=== PATIENT | male | born 1975 | race African-American/Black ===

== ENCOUNTER 2025-05-13 11:44 | Emergency (ER) | payer SELFPAY ==
[~2025-05-13] VITALS: Ht 182.9 cm; Wt 75.0 kg
[2025-05-13 11:53] VITALS: O2SAT 96
[2025-05-13 13:18] LABS: BASOPHILS % 0.9 % (0.0-2.0); EOSINOPHILS % 0.3 % (0.0-5.0); HEMATOCRIT. 39.1 % (42.0-52.0); HEMOGLOBIN. 13.1 g/dL (14.0-18.0); LYMPHOCYTES % 11.9 % (20.0-50.0); MEAN PLATELET VOLUME 9.0 fl (7.4-10.4); MONOCYTES % 9.6 % (2.0-8.0); NEUTROPHILS % 77.3 % (40.0-76.0); PLATELET 241 x1000/uL (130-400); RED BLOOD CELL COUNT 4.29 mill/uL (4.7-6.1); RED CELL DISTRIBUTION WIDTH 12.6 % (11.6-14.6)
[2025-05-13 13:39] LABS: CREATININE 0.8 mg/dL (0.6-1.3); UREA NITROGEN BLOOD 10 mg/dL (9-23)
[2025-05-13 13:41] LABS: ASPARTATE AMINOTRANSFERASE 13 IU/L (<34); BILIRUBIN DIRECT 0.2 mg/dL (<=3.0); BILIRUBIN TOTAL 0.7 mg/dL (0.1-1.0); PROTEIN TOTAL 7.0 g/dL (6.0-8.3)
[2025-05-13 13:49] LABS: TROPONIN I HIGH SENSITIVITY 7 ng/L (3.0-53)
[2025-05-13] MEDS ORDERED: BENZ100C86 MT (14:18)
[2025-05-13] MEDS ORDERED: IBUP-2028 MT (14:18)
[2025-05-13 15:45] VITALS: BP 119/69; PULSE 80; RESP 18; TEMP 36.8; O2SAT 98
== END 2025-05-13 15:46 | disposition home or self-care (01) ==
LOC: ER 12:20
DX: J06.9 Acute upper respiratory infection, unspecified (principal); R07.89 Other chest pain; R04.2 Hemoptysis; Z98.890 Other specified postprocedural states
CPT/HCPCS: 80076; 80048; 85025; 84484; 36415; 71045; 93005; 99285; Z7610 ×2

== ENCOUNTER 2025-05-24 11:18 | Inpatient (IN) | payer MEDICAID ==
[2025-05-24] VITALS (36 sets, daily range): BP systolic 119–149; BP diastolic 76–101; PULSE 57–98; RESP 11–25; TEMP 36.7–36.9; O2SAT 95–100
[~2025-05-24] VITALS: Ht 182.9 cm; Wt 78.0 kg
[~2025-05-24 11:18] MED LIST: BENZ100C86 MT; IBUP-2028 MT
[2025-05-24] MEDS: ASPIRIN 325MG TABLET PO ONE (11:57)
[2025-05-24] MEDS: HEPARIN 5000 UNITS/ML VIAL IV ONE (11:57)
[2025-05-24] MEDS ORDERED: HEPARIN 1000 UNITS/ML 10ML ONE ×2 (12:00→12:14)
[2025-05-24] MEDS ORDERED: LIDOCAINE HCL 1% 20ML VIAL ONE (12:00)
[2025-05-24] MEDS ORDERED: IODIXANOL 320 MG/ML 150ML BOTTLE IV ONE (12:00)
[2025-05-24 12:12] LABS: BASOPHILS % 0.8 % (0.0-2.0); EOSINOPHILS % 0.3 % (0.0-5.0); HEMATOCRIT. 37.3 % (42.0-52.0); HEMOGLOBIN. 12.5 g/dL (14.0-18.0); LYMPHOCYTES % 14.8 % (20.0-50.0); MEAN PLATELET VOLUME 8.7 fl (7.4-10.4); MONOCYTES % 8.7 % (2.0-8.0); NEUTROPHILS % 75.4 % (40.0-76.0); PLATELET 410 x1000/uL (130-400); RED BLOOD CELL COUNT 4.09 mill/uL (4.7-6.1); RED CELL DISTRIBUTION WIDTH 13.0 % (11.6-14.6)
[2025-05-24] MEDS ORDERED: FENTANYL CITRATE/PF 50MCG/ML 2ML VIAL ONE (12:13)
[2025-05-24] MEDS ORDERED: MIDAZOLAM HCL 2 MG/2 ML VIAL ONE (12:14)
[2025-05-24 12:24] LABS: CREATININE 0.9 mg/dL (0.6-1.3); UREA NITROGEN BLOOD 7 mg/dL (9-23)
[2025-05-24 12:25] LABS: ASPARTATE AMINOTRANSFERASE 12 IU/L (<34)
[2025-05-24 12:26] LABS: BILIRUBIN DIRECT 0.1 mg/dL (<=3.0); BILIRUBIN TOTAL 0.5 mg/dL (0.1-1.0); PROTEIN TOTAL 6.8 g/dL (6.0-8.3)
[2025-05-24 12:37] LABS: TROPONIN I HIGH SENSITIVITY 199 ng/L (3.0-53)
[2025-05-24] MEDS: SODIUM CHLORIDE 0.45% 1,000 ML IV SCH (13:00)
[2025-05-24] MEDS ORDERED: CLONIDINE 0.1MG TABLET PO PRN (14:00)
[2025-05-24] MEDS ORDERED: MAGNESIUM/ALUMINUM HYDROXIDE/SIMETHICONE 30ML UDC PO PRN (14:00)
[2025-05-24] MEDS ORDERED: GUAIFENESIN 200MG/10ML SUGAR FREE UDC PO PRN (14:00)
[2025-05-24] MEDS ORDERED: ONDANSETRON HCL 4MG/2ML INJ IV PRN (14:00)
[2025-05-24] MEDS ORDERED: IPRATROPIUM/ALBUTEROL 0.5-3(2.5)MG/3ML NEB HHN PRN (14:00)
[2025-05-24] MEDS ORDERED: DEXTROSE 50% WATER 50ML SYRINGE IV PRN (16:30)
[2025-05-24 17:37] LABS: *AMPHETAMINES SCREEN URINE NEGATIVE (NEGATIVE); *BENZODIAZEPINES SCREEN URINE PRESUMPTIVE POSITIVE (NEGATIVE)
[2025-05-24 17:38] LABS: *BARBITURATES SCREEN URINE NEGATIVE (NEGATIVE); *COCAINE SCREEN URINE NEGATIVE (NEGATIVE); CANNABINOID URINE SCREEN PRESUMPTIVE POSITIVE (NEGATIVE); ECSTASY MDMA SCREEN URINE NEGATIVE (NEGATIVE); METHADONE URINE SCREEN NEGATIVE (NEGATIVE); OPIATES URINE SCREEN NEGATIVE (NEGATIVE); PHENCYCLIDINE URINE SCREEN NEGATIVE (NEGATIVE)
[2025-05-24 17:39] LABS: CLARITY URINE CLEAR (CLEAR); COLOR URINE YELLOW (YELLOW); GLUCOSE URINE NEGATIVE (NEGATIVE); KETONES URINE 1+ (NEGATIVE); LEUKOCYTE ESTERASE URINE NEGATIVE (NEGATIVE); NITRITE URINE NEGATIVE (NEGATIVE); OCCULT BLOOD URINE NEGATIVE (NEGATIVE); PH URINE 5.5 (4.5-8.0); PROTEIN URINE 1+ (NEGATIVE); SPECIFIC GRAVITY URINE 1.073 (1.005-1.030); UROBILINOGEN URINE 1.0 E.U./dL (0.2-1.0)
[2025-05-24 17:54] LABS: BACTERIA URINE TRACE; RBC URINE 0-2 /hpf (0-2); SQUAMOUS EPITHELIAL CELL URINE FEW /lpf (RARE/1+)
[2025-05-24] MEDS: PANTOPRAZOLE SODIUM 40 MG/VIAL IV SCH (17:56)
[2025-05-24] MEDS: COLCHICINE 0.6MG TABLET PO SCH (17:57)
[2025-05-24] MEDS: IBUPROFEN 600MG TABLET PO SCH (17:57)
[2025-05-24 19:30] LABS: INFLUENZA TYPE A Presumptive Negative (Pres. Neg.); INFLUENZA TYPE B Presumptive Negative (Pres. Neg.); RESPIRATORY SYNCYTIAL VIRUS Not Detected (Not Detectd)
[2025-05-24] MEDS: ACETAMINOPHEN 325MG TABLET PO PRN (19:52)
[2025-05-24 21:29] LABS: INR 1.1
[2025-05-24 22:18] LABS: TROPONIN I HIGH SENSITIVITY 13860 ng/L (3.0-53)
[2025-05-25] VITALS (12 sets, daily range): BP systolic 120–147; BP diastolic 66–92; PULSE 63–106; RESP 18–27; TEMP 36.7–38.2; O2SAT 97–100
[2025-05-25 01:57] LABS: TROPONIN I HIGH SENSITIVITY 18200 ng/L (3.0-53)
[2025-05-25] MEDS ORDERED: MIDAZOLAM HCL 2 MG/2 ML VIAL IV NR (03:30)
[2025-05-25] MEDS: SODIUM CHLORIDE 0.45% 1,000 ML IV SCH (08:18)
[2025-05-25] MEDS ORDERED: CLOPIDOGREL 75MG TABLET PO SCH (09:00)
[2025-05-25] MEDS ORDERED: ASPIRIN 81MG TABLET PO SCH (09:00)
[2025-05-25] MEDS: CLOPIDOGREL 75MG TABLET PO SCH (09:51)
[2025-05-25] MEDS: ASPIRIN 81MG TABLET PO SCH (09:51)
[2025-05-25] MEDS: METOPROLOL TARTRATE 25MG TABLET PO SCH (09:52)
[2025-05-25 12:53] LABS: BASOPHILS % 0.4 % (0.0-2.0); EOSINOPHILS % 0.1 % (0.0-5.0); HEMATOCRIT. 38.5 % (42.0-52.0); HEMOGLOBIN. 12.8 g/dL (14.0-18.0); LYMPHOCYTES % 7.6 % (20.0-50.0); MEAN PLATELET VOLUME 8.5 fl (7.4-10.4); MONOCYTES % 6.4 % (2.0-8.0); NEUTROPHILS % 85.5 % (40.0-76.0); PLATELET 352 x1000/uL (130-400); RED BLOOD CELL COUNT 4.29 mill/uL (4.7-6.1); RED CELL DISTRIBUTION WIDTH 13.0 % (11.6-14.6)
[2025-05-25 13:09] LABS: CREATINE KINASE MB FRACTION 22.6 ng/mL (0.5-3.6); CREATININE 0.7 mg/dL (0.6-1.3); TRIGLYCERIDE 105 mg/dL (0-150); UREA NITROGEN BLOOD < 5 mg/dL (9-23)
[2025-05-25 13:10] LABS: LDL CHOLESTEROL 134 mg/dL (5-100)
[2025-05-25] MEDS: ATORVASTATIN CALCIUM 40MG TABLET PO SCH (20:21)
[2025-05-25] MEDS: ENOXAPARIN 40MG/0.4ML SYR SUBCUT SCH (20:21)
[2025-05-25] MEDS ORDERED: ATORVASTATIN CALCIUM 40MG TABLET PO SCH (21:00)
[2025-05-25 23:03] LABS: TROPONIN I HIGH SENSITIVITY 11528 ng/L (3.0-53)
[2025-05-26] VITALS: BP_SYST 127; BP_SYST 129; BP_DIAS 84; BP_DIAS 98; PULSE 65; PULSE 92; RESP 19; TEMP 36.6; TEMP 36.7; O2SAT 100
[2025-05-26 04:00] VITALS: BP 126/80; PULSE 85; RESP 21; TEMP 36.9; O2SAT 97
[2025-05-26 08:00] VITALS: BP 119/77; PULSE 101; RESP 25; TEMP 36.6; O2SAT 97
[2025-05-26] MEDS: SODIUM CHLORIDE 0.45% 250 ML IV ONE (09:30)
[2025-05-26 10:33] LABS: BASOPHILS % 0.6 % (0.0-2.0); EOSINOPHILS % 0.1 % (0.0-5.0); HEMATOCRIT. 37.6 % (42.0-52.0); HEMOGLOBIN. 12.4 g/dL (14.0-18.0); LYMPHOCYTES % 8.4 % (20.0-50.0); MEAN PLATELET VOLUME 8.9 fl (7.4-10.4); MONOCYTES % 7.7 % (2.0-8.0); NEUTROPHILS % 83.2 % (40.0-76.0); PLATELET 364 x1000/uL (130-400); RED BLOOD CELL COUNT 4.18 mill/uL (4.7-6.1); RED CELL DISTRIBUTION WIDTH 13.1 % (11.6-14.6)
[2025-05-26 10:56] LABS: TROPONIN I HIGH SENSITIVITY 7477 ng/L (3.0-53)
[2025-05-26 11:14] LABS: CREATININE 0.8 mg/dL (0.6-1.3)
[2025-05-26 11:15] LABS: UREA NITROGEN BLOOD < 5 mg/dL (9-23)
[2025-05-26 12:00] VITALS: BP 119/74; PULSE 99; RESP 31; TEMP 36.9; O2SAT 97
[2025-05-26] MEDS ORDERED: CEFTRIAXONE 1GM/50ML 50 ML IV SCH (13:00)
[2025-05-26] MEDS: PIPERACILLIN/TAZO 3.375G/50ML 50 ML IV SCH (13:19)
[2025-05-26] MEDS: SODIUM CHLORIDE 0.45% 1,000 ML IV SCH (13:20)
[2025-05-26 14:31] LABS: FOLIC ACID (FOLATE) SERUM 11.17 ng/mL (>5.38)
[2025-05-26 14:32] LABS: VITAMIN B12 SERUM 266 pg/mL (211-911)
[2025-05-26 14:38] LABS: TROPONIN I HIGH SENSITIVITY 7468 ng/L (3.0-53)
[2025-05-26] MEDS: VANCOMYCIN 1.5GM PMX (XELLIA) 300 ML IV SCH (14:59)
[2025-05-26 16:00] VITALS: BP 115/69; PULSE 102; RESP 29; TEMP 38.3; O2SAT 97
[2025-05-26 20:00] VITALS: BP 124/76; PULSE 104; RESP 27; TEMP 37.2; O2SAT 96
[2025-05-26 22:13] LABS: CREATINE KINASE MB FRACTION 1.5 ng/mL (0.5-3.6)
[2025-05-27] VITALS: BP 112/70; PULSE 94; RESP 24; TEMP 38.3; O2SAT 97
[2025-05-27 04:00] VITALS: BP 122/77; PULSE 90; RESP 19; TEMP 36.8; O2SAT 98
[2025-05-27 07:34] LABS: CREATININE 0.7 mg/dL (0.6-1.3); UREA NITROGEN BLOOD 6 mg/dL (9-23)
[2025-05-27 08:00] VITALS: BP 110/72; PULSE 92; RESP 21; TEMP 37.1; O2SAT 98
[2025-05-27 08:00] LABS: HEMATOCRIT. 36.6 % (42.0-52.0); HEMOGLOBIN. 12.3 g/dL (14.0-18.0); MEAN PLATELET VOLUME 8.5 fl (7.4-10.4); PLATELET 334 x1000/uL (130-400); RED BLOOD CELL COUNT 4.08 mill/uL (4.7-6.1); RED CELL DISTRIBUTION WIDTH 13.1 % (11.6-14.6)
[2025-05-27 12:00] VITALS: BP 119/65; PULSE 93; RESP 25; TEMP 36.9; O2SAT 98
[2025-05-27 13:36] LABS: CLARITY URINE CLEAR (CLEAR); COLOR URINE YELLOW (YELLOW); GLUCOSE URINE NEGATIVE (NEGATIVE); KETONES URINE NEGATIVE (NEGATIVE); LEUKOCYTE ESTERASE URINE NEGATIVE (NEGATIVE); NITRITE URINE NEGATIVE (NEGATIVE); OCCULT BLOOD URINE NEGATIVE (NEGATIVE); PH URINE 5.5 (4.5-8.0); PROTEIN URINE TRACE (NEGATIVE); SPECIFIC GRAVITY URINE 1.020 (1.005-1.030); UROBILINOGEN URINE 2.0 E.U./dL (0.2-1.0)
[2025-05-27 14:24] LABS: SQUAMOUS EPITHELIAL CELL URINE FEW /lpf (RARE/1+)
[2025-05-27 14:25] LABS: BACTERIA URINE TRACE; RBC URINE NONE SEEN /hpf (0-2); WBC URINE 0-2 /hpf (0-2); YEAST URINE NONE SEEN
[2025-05-27 16:00] VITALS: BP 110/70; PULSE 92; RESP 22; TEMP 37.4; O2SAT 97
[2025-05-27 16:57] LABS: EOSINOPHILS % MANUAL 1.0 % (0.0-5.0); LYMPHOCYTES % MANUAL 5.0 % (20.0-50.0); MONOCYTES % MANUAL 6.0 % (2.0-8.0); NEUTROPHILS % MANUAL 88.0 % (45.0-75.0); PLATELET ESTIMATE NORMAL
[2025-05-27 20:02] VITALS: BP 110/75; PULSE 96; RESP 25; TEMP 36.3; O2SAT 97
[2025-05-28 00:02] VITALS: BP 112/74; PULSE 90; RESP 22; TEMP 37.4; O2SAT 97
[2025-05-28 04:02] VITALS: BP 111/72; PULSE 88; RESP 21; TEMP 37.9; O2SAT 97
[2025-05-28 07:37] LABS: BASOPHILS % 0.9 % (0.0-2.0); EOSINOPHILS % 0.6 % (0.0-5.0); HEMATOCRIT. 35.7 % (42.0-52.0); HEMOGLOBIN. 12.0 g/dL (14.0-18.0); LYMPHOCYTES % 13.4 % (20.0-50.0); MEAN PLATELET VOLUME 8.4 fl (7.4-10.4); MONOCYTES % 13.4 % (2.0-8.0); NEUTROPHILS % 71.7 % (40.0-76.0); PLATELET 356 x1000/uL (130-400); RED BLOOD CELL COUNT 3.96 mill/uL (4.7-6.1); RED CELL DISTRIBUTION WIDTH 13.2 % (11.6-14.6)
[2025-05-28 08:00] VITALS: BP 121/80; PULSE 95; RESP 24; TEMP 37.3; O2SAT 97
[2025-05-28 08:02] LABS: CREATININE 0.8 mg/dL (0.6-1.3)
[2025-05-28 08:03] LABS: PROTEIN TOTAL 6.3 g/dL (6.0-8.3); UREA NITROGEN BLOOD 5 mg/dL (9-23)
[2025-05-28 08:05] LABS: ASPARTATE AMINOTRANSFERASE 20 IU/L (<34); BILIRUBIN DIRECT 0.1 mg/dL (<=3.0); BILIRUBIN TOTAL 0.3 mg/dL (0.1-1.0)
[2025-05-28 08:34] LABS: TROPONIN I HIGH SENSITIVITY 4333 ng/L (3.0-53)
[2025-05-28] MEDS: FAMOTIDINE 20MG/2ML VIAL IV SCH (10:32)
[2025-05-28 12:00] VITALS: BP 110/75; PULSE 96; RESP 22; TEMP 37; O2SAT 96
[2025-05-28 16:00] VITALS: BP 112/83; PULSE 92; RESP 22; TEMP 37.3; O2SAT 97
[2025-05-28 20:00] VITALS: BP 112/75; PULSE 91; RESP 22; TEMP 37.1; O2SAT 96
[2025-05-28] MEDS: DEXT 5%/0.45% NACL 1000ML 1,000 ML IV SCH (20:14)
[2025-05-28] MEDS: ACETAMINOPHEN 325MG TABLET PO PRN (23:36)
[2025-05-29] VITALS: BP 118/82; PULSE 86; RESP 15; TEMP 37.3; O2SAT 97
[2025-05-29 04:00] VITALS: BP 122/83; PULSE 88; RESP 19; TEMP 37; O2SAT 96
[2025-05-29 06:17] LABS: HEMATOCRIT. 41.9 % (42.0-52.0); HEMOGLOBIN. 13.8 g/dL (14.0-18.0); MEAN PLATELET VOLUME 8.7 fl (7.4-10.4); PLATELET 443 x1000/uL (130-400); RED BLOOD CELL COUNT 4.64 mill/uL (4.7-6.1); RED CELL DISTRIBUTION WIDTH 13.0 % (11.6-14.6)
[2025-05-29 06:42] LABS: CREATININE 0.9 mg/dL (0.6-1.3); UREA NITROGEN BLOOD 6 mg/dL (9-23)
[2025-05-29 08:00] VITALS: BP 115/81; PULSE 86; RESP 17; TEMP 36.9; O2SAT 86; O2SAT 98
[2025-05-29 12:00] VITALS: BP 102/59; PULSE 79; RESP 13; TEMP 36.9; O2SAT 99
[2025-05-29] MEDS: SODIUM CHLORIDE 0.9% 1,000 ML IV SCH (14:37)
[2025-05-29 16:00] VITALS: BP 121/77; PULSE 82; RESP 21; TEMP 36.8; O2SAT 98
[2025-05-29 20:00] VITALS: PULSE 76; RESP 20; TEMP 36.7; O2SAT 98
[2025-05-29 21:17] LABS: BAND% 2.0 % (1.0-6.0); EOSINOPHILS % MANUAL 2.0 % (0.0-5.0); LYMPHOCYTES % MANUAL 28.0 % (20.0-50.0); MONOCYTES % MANUAL 8.0 % (2.0-8.0); NEUTROPHILS % MANUAL 60.0 % (45.0-75.0); NUCLEATED RED BLOOD CELLS 1 /100 WBC; PLATELET ESTIMATE INCREASED
[2025-05-29] MEDS: DEXT 5%/0.45% NACL 1000ML 1,000 ML IV SCH (22:39)
[2025-05-30 04:00] VITALS: PULSE 74; RESP 20; TEMP 36.6; O2SAT 97
[2025-05-30 07:21] LABS: BASOPHILS % 0.9 % (0.0-2.0); EOSINOPHILS % 1.3 % (0.0-5.0); HEMATOCRIT. 35.0 % (42.0-52.0); HEMOGLOBIN. 11.7 g/dL (14.0-18.0); LYMPHOCYTES % 18.1 % (20.0-50.0); MEAN PLATELET VOLUME 8.6 fl (7.4-10.4); MONOCYTES % 11.8 % (2.0-8.0); NEUTROPHILS % 67.9 % (40.0-76.0); PLATELET 377 x1000/uL (130-400); RED BLOOD CELL COUNT 3.89 mill/uL (4.7-6.1); RED CELL DISTRIBUTION WIDTH 13.2 % (11.6-14.6)
[2025-05-30 07:22] LABS: CREATININE 0.7 mg/dL (0.6-1.3); UREA NITROGEN BLOOD 7 mg/dL (9-23)
[2025-05-30 07:29] LABS: TROPONIN I HIGH SENSITIVITY 2416 ng/L (3.0-53)
[2025-05-30 08:00] VITALS: BP 116/74; PULSE 83; RESP 17; TEMP 37.2; O2SAT 98
[2025-05-30 11:59] VITALS: BP 125/73; PULSE 88; RESP 24; TEMP 36.9; O2SAT 97
[2025-05-30] MEDS ORDERED: TETRACAINE/BENZOCAINE/BUTAMBEN 20 GM SPRAY MM ONE (14:52)
[2025-05-30] MEDS ORDERED: MIDAZOLAM HCL 2 MG/2 ML VIAL ONE (14:52)
[2025-05-30] MEDS ORDERED: LIDOCAINE 2% 6ML GLYDO ONE (14:52)
[2025-05-30] MEDS ORDERED: FENTANYL CITRATE/PF 50MCG/ML 2ML VIAL ONE (14:53)
[2025-05-30 16:00] VITALS: BP 129/81; PULSE 97; RESP 16; TEMP 37; O2SAT 97
[2025-05-30] MEDS: DEXT IV SCH (18:25)
[2025-05-30] MEDS: WATER IV SCH (18:25)
[2025-05-30] MEDS: PENICILLIN POTASSIUM IV SCH (18:25)
[2025-05-30 20:00] VITALS: BP 11/79; PULSE 86; RESP 17; TEMP 36.8; O2SAT 96
[2025-05-31] VITALS: BP_SYST 11; BP_SYST 111; BP_DIAS 79; PULSE 86; RESP 19; TEMP 37.1; O2SAT 96
[2025-05-31 04:00] VITALS: BP 112/72; PULSE 84; RESP 20; TEMP 37.7; O2SAT 97
[2025-05-31 06:48] LABS: CREATININE 0.8 mg/dL (0.6-1.3); UREA NITROGEN BLOOD 6 mg/dL (9-23)
[2025-05-31 06:51] LABS: BASOPHILS % 0.8 % (0.0-2.0); EOSINOPHILS % 1.1 % (0.0-5.0); HEMATOCRIT. 36.9 % (42.0-52.0); HEMOGLOBIN. 12.5 g/dL (14.0-18.0); LYMPHOCYTES % 20.0 % (20.0-50.0); MEAN PLATELET VOLUME 8.6 fl (7.4-10.4); MONOCYTES % 9.2 % (2.0-8.0); NEUTROPHILS % 68.9 % (40.0-76.0); PLATELET 395 x1000/uL (130-400); RED BLOOD CELL COUNT 4.16 mill/uL (4.7-6.1); RED CELL DISTRIBUTION WIDTH 12.9 % (11.6-14.6)
[2025-05-31 06:53] LABS: TROPONIN I HIGH SENSITIVITY 1647 ng/L (3.0-53)
[2025-05-31 08:00] VITALS: BP 121/81; PULSE 96; RESP 18; TEMP 36.6; O2SAT 98
[2025-05-31 12:00] VITALS: BP 119/77; PULSE 82; RESP 17; TEMP 36.6; O2SAT 99
[2025-05-31 16:00] VITALS: BP 114/75; PULSE 86; RESP 18; TEMP 36.6; O2SAT 97
[2025-05-31 20:00] VITALS: PULSE 79; RESP 20; TEMP 37; O2SAT 98
[2025-06-01] VITALS: PULSE 76; RESP 18; TEMP 37; O2SAT 97
[2025-06-01 04:00] VITALS: PULSE 72; RESP 20; TEMP 36.4; O2SAT 97
[2025-06-01 07:06] LABS: CREATININE 0.8 mg/dL (0.6-1.3)
[2025-06-01 07:07] LABS: UREA NITROGEN BLOOD 7 mg/dL (9-23)
[2025-06-01 08:00] VITALS: BP 124/71; PULSE 82; RESP 17; TEMP 36.9; O2SAT 98
[2025-06-01 12:00] VITALS: BP 117/74; PULSE 79; RESP 18; TEMP 36.5; O2SAT 98
[2025-06-01 16:00] VITALS: BP 112/79; PULSE 75; RESP 17; TEMP 36.6; O2SAT 98
[2025-06-01 20:00] VITALS: BP 112/76; PULSE 84; RESP 17; TEMP 36.6; O2SAT 95
[2025-06-02] VITALS: BP 124/73; PULSE 73; RESP 12; TEMP 36.8; O2SAT 97
[2025-06-02 04:00] VITALS: BP 108/80; PULSE 76; RESP 18; TEMP 36.8; O2SAT 98
[2025-06-02 08:00] VITALS: BP 114/69; PULSE 83; RESP 16; TEMP 37.1; O2SAT 99
[2025-06-02 12:00] VITALS: BP 131/84; PULSE 97; RESP 16; TEMP 36.9; O2SAT 98
[2025-06-02 16:00] VITALS: BP 111/74; PULSE 82; RESP 16; TEMP 37.1; O2SAT 99
[2025-06-02 20:00] VITALS: BP 116/76; PULSE 85; RESP 20; TEMP 37.3; O2SAT 97
[2025-06-03] VITALS: BP 116/59; PULSE 72; RESP 17; TEMP 36.7; O2SAT 98
[2025-06-03 04:00] VITALS: BP 110/67; PULSE 66; RESP 19; TEMP 37; O2SAT 97
[2025-06-03 08:00] VITALS: BP 104/57; PULSE 68; RESP 18; TEMP 36.9; O2SAT 99
[2025-06-03 12:00] VITALS: BP 117/70; PULSE 61; RESP 13; TEMP 37; O2SAT 99
[2025-06-03 16:00] VITALS: BP 117/64; PULSE 67; RESP 14; TEMP 36.8; O2SAT 99
[2025-06-03 20:00] VITALS: BP 112/63; PULSE 71; RESP 16; TEMP 36.9; O2SAT 97
[2025-06-04] VITALS: BP 135/69; PULSE 61; RESP 17; TEMP 37; O2SAT 100
[2025-06-04 04:00] VITALS: BP 101/60; PULSE 60; RESP 19; TEMP 36.9; O2SAT 99
[2025-06-04 08:00] VITALS: BP 108/63; PULSE 74; RESP 18; TEMP 36.6; O2SAT 96
[2025-06-04 12:00] VITALS: BP 113/76; PULSE 76; RESP 18; TEMP 36.8; O2SAT 98
[2025-06-04 16:00] VITALS: BP 108/63; PULSE 74; RESP 18; TEMP 36.6; O2SAT 96
[2025-06-04 20:00] VITALS: BP 114/78; PULSE 76; RESP 21; TEMP 37.2; O2SAT 98
[2025-06-05] VITALS: BP 127/79; PULSE 67; RESP 12; TEMP 37; O2SAT 98
[2025-06-05 04:00] VITALS: BP 117/75; PULSE 65; RESP 16; TEMP 36.8; O2SAT 97
[2025-06-05 08:00] VITALS: BP 121/65; PULSE 78; RESP 16; TEMP 36.6; O2SAT 97
[2025-06-05 12:00] VITALS: BP 118/84; PULSE 82; RESP 18; TEMP 36.2; O2SAT 97
[2025-06-05] MEDS ORDERED: LIDOCAINE HCL 1% 10 MG/ML 10ML VIAL ONE (13:52)
[2025-06-05] MEDS ORDERED: LIDOCAINE HCL 1% 20ML VIAL ONE (13:52)
[2025-06-05 16:00] VITALS: BP 112/74; PULSE 69; RESP 16; TEMP 36.5; O2SAT 99
[2025-06-05 20:00] VITALS: BP 105/60; PULSE 79; RESP 19; TEMP 36.7; O2SAT 99
[2025-06-06] VITALS: BP 118/69; PULSE 69; RESP 18; TEMP 36.7; O2SAT 98
[2025-06-06 04:00] VITALS: BP 112/69; PULSE 87; RESP 18; TEMP 36.4; O2SAT 99
[2025-06-06 08:00] VITALS: BP 109/58; PULSE 69; RESP 18; TEMP 36.9; O2SAT 99
[2025-06-06 12:00] VITALS: BP 112/68; PULSE 84; RESP 17; TEMP 36.9; O2SAT 99
[2025-06-06 16:00] VITALS: BP 110/64; PULSE 81; RESP 15; TEMP 37; O2SAT 98
[2025-06-06] MEDS ORDERED: LIP40 PO (19:01)
[2025-06-06] MEDS ORDERED: METO-396 MT (19:01)
[2025-06-06] MEDS ORDERED: ASPI-1160 PO (19:01)
[2025-06-06 20:00] VITALS: BP 102/61; RESP 17; TEMP 36.7; O2SAT 99
[2025-06-07] VITALS: BP 121/76; PULSE 69; RESP 18; TEMP 36.6; O2SAT 98
[2025-06-07 04:00] VITALS: BP 122/66; PULSE 74; RESP 19; TEMP 36.5; O2SAT 99
[2025-06-07 08:00] VITALS: BP 113/67; PULSE 72; RESP 16; TEMP 36.4; O2SAT 100
[2025-06-07 12:00] VITALS: BP 112/59; PULSE 69; RESP 19; TEMP 36.7; O2SAT 99
[2025-06-07 16:00] VITALS: BP 123/60; PULSE 69; RESP 20; TEMP 37.2; O2SAT 99
[2025-06-07 20:00] VITALS: BP 108/62; PULSE 74; RESP 17; TEMP 36.5; O2SAT 98
[2025-06-08] VITALS: BP 125/72; PULSE 70; RESP 17; TEMP 37; O2SAT 99
[2025-06-08 04:00] VITALS: BP 117/63; PULSE 80; RESP 18; TEMP 36.8; O2SAT 97
[2025-06-08 08:00] VITALS: BP 108/74; PULSE 75; RESP 17; TEMP 36.8; O2SAT 99
[2025-06-08 12:00] VITALS: BP 114/63; PULSE 76; RESP 17; TEMP 36.7; O2SAT 99
[2025-06-08 16:00] VITALS: BP 111/71; PULSE 79; RESP 16; TEMP 36.9; O2SAT 99
[2025-06-08 20:00] VITALS: BP 120/67; PULSE 80; RESP 17; TEMP 36.4; O2SAT 98
[2025-06-09] VITALS: BP 110/71; PULSE 76; RESP 17; TEMP 36.4; O2SAT 99
[2025-06-09 04:00] VITALS: BP 101/63; PULSE 65; RESP 16; TEMP 36.4; O2SAT 98
[2025-06-09 08:00] VITALS: BP 115/64; PULSE 74; RESP 17; TEMP 36.9; O2SAT 97
[2025-06-09 12:00] VITALS: BP 120/65; PULSE 69; RESP 17; TEMP 36.2; O2SAT 99
[2025-06-09 14:05] VITALS: BP 124/65; PULSE 69; RESP 17; TEMP 97.1
[2025-06-09 16:00] VITALS: PULSE 77; RESP 18; TEMP 36.9; O2SAT 97
== END 2025-06-09 16:31 | disposition home health service (06) | DRG 720 ==
LOC: ER 11:44 → CVICU 11:50 → EDBEDREQ 11:55 → EDBEDREQTM 11:55 → ENRESERV 12:14 → 3WST 05-25 03:01 → 8EST 06-05 06:43
PROVIDERS: ADMIT Internal Medicine; ATTEND Internal Medicine
PROC: 4A023N7 Measurement of Cardiac Sampling and Pressure, Left Heart, Percutaneous Approach (ICD-10-PCS; 2025-05-24)
PROC: B211YZZ Fluoroscopy of Multiple Coronary Arteries using Other Contrast (ICD-10-PCS; 2025-05-24)
PROC: B215YZZ Fluoroscopy of Left Heart using Other Contrast (ICD-10-PCS; 2025-05-24)
PROC: B24BZZ4 Ultrasonography of Heart with Aorta, Transesophageal (ICD-10-PCS; 2025-05-30)
PROC: 02HV33Z Insertion of Infusion Device into Superior Vena Cava, Percutaneous Approach (ICD-10-PCS; principal; 2025-06-05)
PROC: B548ZZA Ultrasonography of Superior Vena Cava, Guidance (ICD-10-PCS; 2025-06-05)
DX: A40.8 Other streptococcal sepsis (principal); I21.19 ST elevation (STEMI) myocardial infarction involving other coronary artery of inferior wall; I33.0 Acute and subacute infective endocarditis; D64.9 Anemia, unspecified; F19.10 Other psychoactive substance abuse, uncomplicated; D75.839 Thrombocytosis, unspecified; R73.03 Prediabetes; E78.5 Hyperlipidemia, unspecified; F12.10 Cannabis abuse, uncomplicated; I34.0 Nonrheumatic mitral (valve) insufficiency; Z79.899 Other long term (current) drug therapy
CPT/HCPCS: 36415; 36573; 71045; 80048; 80061; 80076; 80202; 80305; 81003; 82550; 82553; 82607; 82728; 82746; 83036; 83540; 83550; 83605; 83735; 83880; 84145; 84443; 84484; 85025; 85044; 85651; 86141; 86431; 86850; 86900; 87077; 87186; 87420; 87804; 93005; 93306; 93312; 93458; 93970; 99291; A4606; A4615; C1725; C1887; C1893; J0696; J1308; J1644; J1650; J2003; J2250; J2470; J2540; J2543; J3010; J3373; J7060; Q9967